=== PATIENT | male | born 2000 | race Two or more races ===

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

== ENCOUNTER 2024-04-30 17:50 | Emergency (ER) | payer MEDICAID ==
[~2024-04-30] VITALS: Ht 162.6 cm; Wt 44.8 kg
[2024-04-30 18:07] VITALS: BP 125/76; PULSE 92; RESP 16; O2SAT 98
[2024-04-30] MEDS: ACETAMINOPHEN 325 MG TAB PO ONE (18:14)
[2024-04-30 20:25] LABS: COVID19 ANTIGEN SOFIA FIA NEGATIVE (NEGATIVE)
[2024-04-30 20:26] LABS: Rapid Influenza B Negative (Negative)
[2024-04-30 20:30] LABS: Rapid Influenza A Positive (Negative)
[2024-04-30 21:33] VITALS: TEMP 98.8
[2024-04-30] MEDS ORDERED: ACET500T58 PO (21:33)
[2024-04-30] MEDS ORDERED: OSEL75CA5 PO (21:33)
--- NOTE | 2024-04-30 21:33 | ED.PDOC ---
History of Present Illness HPI Comments 24-YEAR-OLD MALE PRESENTS TO ER WITH COMPLAINTS OF FLU-LIKE SYMPTOMS X1 DAY. 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 REPORTS USE OF [id number] MUCINEX WITHOUT RELIEF. PATIENT PRESENTS TO ER FEBRILE ON ARRIVAL AT 101.3 F, AMBULATORY, WITH STEADY GAIT, IN NO DISTRESS. PATIENT CURRENTLY COMPLAINS OF MILD FRONTAL HEADACHE PAIN, DENYING ANY OTHER PAIN. DENIES SHORTNESS OF BREATH, CHEST PAIN, HEMOPTYSIS, SORE THROAT, EARACHE, KNOWN EXPOSURE TO SICK CONTACTS, NAUSEA/VOMITING, ABDOMINAL PAIN OR ANY FURTHER SYMPTOMS/COMPLAINTS Chief Complaint: Flu like Time Seen by MD: 19:18 Primary Care Provider: UNKNOWN Reviewed Notes: Nurses Notes, Medications, Allergies Information Source: Patient, Relative (Mother) Mode of Arrival: Ambulatory Past Medical History PAST MEDICAL HISTORY: Depression Past Medical History (Other): AUTISM DEAF IN BILATERAL EARS Surgical History: Denies all surgeries Surgical History (Other): RIGHT EYE SURGERY Family History Family History: Unknown Social History Smoker: Non-Smoker Alcohol: Denies ETOH Use Drugs: Denies Drug Use Lives In: Home Constitutional: See HPI EENTM: See HPI Respiratory: See HPI Cardiovascular: No Symptoms Reported Gastrointestinal: No Symptoms Reported Genitourinary: No Symptoms Reported Neurological: See HPI Musculoskeletal: No Symptoms Reported Integumentary: No Symptoms Reported Allergic/Immunocompromised: others Hematologic/Lymphatic: No Symptoms Reported Endocrine: No Symptoms Reported Psychiatric: No symptoms Reported Physical Exam General Appearance: No Apparent Distress HEENT: Normal ENT Inspection, PERRL/EOMI, Pharynx Normal, TMs Normal Neck: Full Range of Motion, Non-Tender, Normal Respiratory: Chest Non-Tender, Lungs Clear, No Accessory Muscle Use, No Respiratory Distress, Normal Breath Sounds Cardiovascular: No Murmur, No Gallop, Regular Rate/Rhythm Breast Exam: Deferred Gastrointestinal: NOT DONE Genitalia: Deferred Pelvic: Deferred Rectal: Deferred Extremities: Normal capillary refill, Normal range of motion Neurologic: Alert, salvage supervisor II-XII nml as Tested, No Motor Deficits, Normal Affect, Normal Mood, No Sensory Deficits Cerebellar Function: Normal Reflexes: Normal Skin: Dry, Normal Color, Warm Lymphatic: No Adenopathy Was a procedure done? Was a procedure done?: No Sedation Sedation?: No Fever Differential Dx Differential Diagnosis: Sepsis, Pharyngitis, Other (COVID-19) X-Ray, Labs, Meds, VS Vital Signs Date Time Temp Pulse Resp B/P (MAP) Pulse Ox O2 Delivery O2 Flow Rate FiO2 04/30/24 21:33 98.8 98.8 04/30/24 18:14 101.3 04/30/24 18:07 101.3 92 16 125/76 (92) 98 Lab Test 04/30/24 18:48 Range/Units Influenza Type A Antigen Positive Negative Influenza Type B Antigen Negative Negative SARS-CoV-2 Antigen (Rapid) Negative NEGATIVE Current Medications Medications (Trade) Dose Ordered Sig/Clint Route Start Time Stop Time Status Last Admin Acetaminophen (Tylenol Tablet) 650 mg ONCE ONCE PO 04/30/24 18:15 04/30/24 18:16 DC 04/30/24 18:14 Influenza A reviewed - positive Influenza B reviewed - negative Araceli reviewed - negative Patient in no distress during ER visit/prior to discharge Advised to drink plenty of fluids Advised to follow up with PCP in 1-2 days Plan of care discussed at bedside with patient and patients mother. Patients mother verbalized understanding and agreeable with current plan of care Advised to return to ER immediately if symptoms worsen Time of 1ST Reevaluation: 21:14 Reevaluation 1ST: N/A Patient Education/Counseling: Diagnosis, Treatment, Prognosis, Need For Follow Up Family Education/Counseling: Diagnosis, Treatment, Prognosis, Need For Follow Up Departure 1 Departure Time of Disposition: 21:30 Impression: Primary Impression: Influenza A Disposition: 01 HOME / SELF CARE / HOMELESS Condition: Stable e-Prescriptions Oseltamivir Phosphate (Tamiflu) 75 Mg Cap 1 CAP PO BID for 5 Days, #10 CAP 0 Refills Prov: QUETA WAY 04/30/24 Acetaminophen (Acetaminophen) 500 Mg Tab 500 MG PO Q4HPRN, #30 TAB Prov: QUETA WAY 04/30/24 Discharged With: Relative (Mother) Critical Care Note Critical Care Time?: No Stability Stability form required: No Heart Score Heart Score: Heart Score Response (Comments) Value History N/A 0 EKG N/A 0 Age N/A 0 Risk Factors N/A 0 Troponin N/A [address] Apr 30, 2024 21:33
== END 2024-04-30 21:39 | disposition home or self-care (01) ==
LOC: ER 17:50
DX: J10.1 Influenza due to other identified influenza virus with other respiratory manifestations (principal); Z20.822 Contact with and (suspected) exposure to COVID-19
CPT/HCPCS: 36415; 87426; 87804